=== PATIENT | female | born 1975 | race Caucasian/White ===

== ENCOUNTER 2022-01-25 00:40 | Emergency (ER) | payer OTHER ==
[~2022-01-25] VITALS: Ht 162.6 cm; Wt 86.4 kg
[2022-01-25] MEDS: ondansetron/PF 4mg/2ml inj IV ONE (01:05)
[2022-01-25] MEDS: morphine 4 MG/ML inj SYRINge IV ONE (01:05)
[2022-01-25] MEDS ORDERED: morphine 4 MG/ML inj SYRINge IV ONE (02:45)
[2022-01-25] MEDS: fentaNYL/PF 50MCG/1 ML 2ML syringe IV ONE (03:02)
[2022-01-25] MEDS: ketorolac tromethamine 15mg/ml inj. IV ONE (03:27)
[2022-01-25] MEDS ORDERED: HYDR-3965 PO (03:35)
[2022-01-25 04:00] VITALS: BP 132/82
== END 2022-01-25 04:06 | disposition home or self-care (01) ==
LOC: ER 00:41
DX: S93.402A Sprain of unspecified ligament of left ankle, initial encounter (principal); M25.572 Pain in left ankle and joints of left foot; E11.9 Type 2 diabetes mellitus without complications; Z79.899 Other long term (current) drug therapy; W19.XXXA Unspecified fall, initial encounter; Y93.89 Activity, other specified; Y92.89 Other specified places as the place of occurrence of the external cause; Y99.8 Other external cause status
CPT/HCPCS: 29515; 73610; 96374; 96375; 99284; J1885; J2270; J2405; J3010